=== PATIENT | male | born 1995 | race African-American/Black ===

== ENCOUNTER 2021-08-22 23:55 | Inpatient (IN) ==
[2021-08-23] MEDS ORDERED: HEPARIN 5,000 UNIT/1 ML VIAL ONE (00:08)
[2021-08-23] MEDS ORDERED: ONDANSETRON 4 MG/2 ML VIAL IV STA (00:15)
[2021-08-23] MEDS ORDERED: MORPHINE 2 MG/1 ML SYRINGE IV STA (00:15)
[2021-08-23] MEDS ORDERED: HEPARIN 5,000 UNIT/1 ML VIAL IV STA (00:20)
[2021-08-23] MEDS ORDERED: HEPARIN DRIP 25,000 UNITS/500 ML PREMIX IV SCH (00:30)
[2021-08-23 00:45] LABS: ABG Base Excess 0.5 MMOL/L (-2.5-2.5); ABG HCO3 24.9 MMOL/L (20-26); ABG Oxygen Saturation 98.9 % (95-100); ABG PCO2 37.7 MM HG (35-48); ABG PH 7.423 (7.35-7.45)
[2021-08-23 00:49] LABS: INR 1.1; PT Patient Result 12.2 SECS (10.5-12.0); Partial Thromboplastin Time 31.5 SECS (23.8-32.1)
[2021-08-23 00:51] LABS: Albumin 3.5 G/DL (3.4-5.0); Bilirubin,Total 1.2 MG/DL (0.20-1.00); Calcium 9.6 MG/DL (8.5-10.1); Osmolality,Calculated 269.1 MOS/KG (273-304); Potassium 3.8 MMOL/L (3.5-5.1); Total Protein 8.6 G/DL (6.4-8.2)
[2021-08-23 00:55] LABS: Basophils # 0.1 10*3/uL (0.0-0.2); Basophils % 0.4 % (0.0-0.8); Eosinophils # 0.1 10*3/uL (0.0-0.87); Eosinophils % 0.3 % (0.00-10.9); Hematocrit 43.8 VOL% (42.0-52.0); Hemoglobin 14.6 GM/DL (14.0-18.0); Immature Granulocytes % 0.6 %; Lymphocytes % 10.9 % (21.2-54.2); Mean Corpuscular HGB Conc 33.3 GM/DL (32-36); Mean Corpuscular Volume 77.5 FL (87-102); Mean Platelet Volume 11.4 FL (9.6-12.0); Monocytes % 10.3 % (1.7-12.7); Neutrophils % 77.5 % (38.7-73.9); Platelet Count 200 T/CUMM (130-400); Red Blood Count 5.65 MC/CUMM (3.8-5.5); Red Cell Distribution Width 13.5 % (9.3-17.3); White Blood Count 17.9 T/CUMM (4-12)
[2021-08-23] MEDS ORDERED: ALBUTEROL 2.5 MG/3 ML NEB RESP TX PRN (01:26)
[2021-08-23] MEDS: APIXABAN 5 MG TABLET PO SCH ×3 (02:15→20:06)
[2021-08-23 02:21] LABS: Hypochromasia 2+; Platelet Estimate Normal
[2021-08-23 02:59] LABS: Hepatitis B Core IgM Quant 0.19 Index; Hepatitis B Surface Ag Quant < 0.10 Index; Hepatitis B Surface Ag Result Non-Reactive (NonReactive); Hepatitis C Virus Ab Quant 0.06 Index; Hepatitis C Virus Ab Result Non-Reactive (NonReactive)
[2021-08-23] MEDS ORDERED: AZITHROMYCIN INJ 500 MG in SODIUM CHLORIDE 0.9% 250 ML IV ONE (03:00)
[2021-08-23] MEDS: methylPREDNISolone SOD SUC 40 MG/1 ML VIAL IV SCH ×2 (03:39→15:52)
[2021-08-23] MEDS ORDERED: MORPHINE 2 MG/1 ML SYRINGE IV PRN (03:42)
[2021-08-23 04:11] LABS: ABG Base Excess 0.3 MMOL/L (-2.5-2.5); ABG HCO3 24.6 MMOL/L (20-26); ABG Oxygen Saturation 97.8 % (95-100); ABG PH 7.418 (7.35-7.45); ABG PO2 108.8 MM HG (80-95); ABG TCO2 25.8 MMOL/L (23-27)
[2021-08-23 06:19] LABS: Basophils # 0.1 10*3/uL (0.0-0.2); Basophils % 0.5 % (0.0-0.8); Eosinophils % 0.1 % (0.00-10.9); Hemoglobin 13.3 GM/DL (14.0-18.0); Immature Granulocytes % 0.7 %; Immature Granulocytes Absolute 0.11 #; Lymphocytes # 1.5 10*3/uL (1.4-4.0); Lymphocytes % 9.3 % (21.2-54.2); Mean Corpuscular HGB Conc 32.4 GM/DL (32-36); Mean Platelet Volume 11.3 FL (9.6-12.0); Monocytes % 9.8 % (1.7-12.7); Neutrophils % 79.6 % (38.7-73.9); Platelet Count 192 T/CUMM (130-400); Red Blood Count 5.19 MC/CUMM (3.8-5.5); Red Cell Distribution Width 13.7 % (9.3-17.3); White Blood Count 15.7 T/CUMM (4-12)
[2021-08-23 06:47] LABS: Albumin 3.1 G/DL (3.4-5.0); Bilirubin,Total 1.4 MG/DL (0.20-1.00); Calcium 8.7 MG/DL (8.5-10.1); Total Protein 7.6 G/DL (6.4-8.2)
[2021-08-23 06:48] LABS: Potassium 4.1 MMOL/L (3.5-5.1)
[2021-08-23] MEDS: PANTOPRAZOLE 40 MG TABLET PO SCH (09:16)
[2021-08-23] MEDS ORDERED: METOPROLOL TARTRATE 5 MG/5 ML VIAL IV PRN (12:08)
[2021-08-23] MEDS ORDERED: cefTRIAXone 1,000 MG in SODIUM CHLORIDE 0.9% 100 ML IV SCH (15:00)
[2021-08-24] MEDS ORDERED: AZITHROMYCIN INJ 250 MG in SODIUM CHLORIDE 0.9% 250 ML IV SCH (03:00)
[2021-08-24] MEDS: methylPREDNISolone SOD SUC 40 MG/1 ML VIAL IV SCH (03:31)
[2021-08-24] MEDS: APIXABAN 5 MG TABLET PO SCH (08:43)
[2021-08-24] MEDS: PANTOPRAZOLE 40 MG TABLET PO SCH (08:43)
[2021-08-24 12:21] VITALS: BP 126/68
== END 2021-08-24 13:49 | disposition home or self-care (01) | DRG 175 ==
LOC: N.ED 23:55 → N.EDINP 08-23 01:26 → SUATTDRO 08-23 01:26 → N.EDINP 08-23 02:25 → N.CC 08-23 03:14 → N.3E 08-23 16:33
PROVIDERS: ADMIT Internal Medicine; ATTEND Internal Medicine